=== PATIENT | female | born 1990 | race Caucasian/White ===

== ENCOUNTER 2016-11-15 16:13 | Emergency (ER) | payer OTHER ==
[2016-11-15 16:28] VITALS: PULSE 65
--- NOTE | 2016-11-15 16:57 | CPEKG ---
Heart Rate: 51 RR Interval: 1176 P-R Interval: 136 QRSD Interval: 78 QT Interval: 436 QTC Interval: 402 P Aurora: 31 QRS Aurora: 35 T Wave Aurora: 54 EKG Severity - BORDERLINE ECG - EKG Impression: SINUS RHYTHM EKG Impression: LOW VOLTAGE THROUGHOUT Electronically Signed By: Katherine Skelton 15-Nov-2016 21:59:01
--- NOTE | 2016-11-15 17:08 | EDPHY ---
H & P Time Seen by Provider: 11/15/16 17:07 HPI/ROS: Chief complaint. Chest tightness HPI. 26-year-old female had an endoscopy 2 days ago. There were some biopsies. Indication for biopsy was celiac disease. Now her throat feels tight. She has had hot and cold and dizzy spells and shaking spells. No fever. She is drinking fluids and swallowing secretions. She feels her chest is tight with some shortness of breath and wheeziness. She also has epigastric abdominal pain. She does have a history of asthma ROS Constitutional. Hot and cold Eyes. no problems with vision ENT. Throat swelling Cardiovascular. Chest tightness Respiratory. Slight shortness of breath Abdominal. Upper abdominal pain . no problems urinating MS. no calf pain/swelling, no neck/back pain, no joint pain Skin. no rash Lymph. no swollen glands Neuro. no headache, no dizziness, no difficulty walking or with speech Past Medical/Surgical History: Past medical history significant lupus, IgA deficiency, sinus surgeries, pyelonephritis, fibromyalgia Social History: , nonsmoker, no alcohol Smoking Status: Never smoked Constitutional: Initial Vital Signs Temperature (C) 37 C 11/15/16 16:25 Heart Rate 65 11/15/16 16:25 Respiratory Rate 20 11/15/16 16:25 Blood Pressure 147/97 H 11/15/16 16:25 O2 Sat (%) 97 11/15/16 16:25 O2 Delivery Mode Room Air Allergies/Adverse Reactions: NSAIDS (Non-Steroidal Anti-Inflamma Allergy (Severe, Verified 11/15/16 16:24) Anaphylaxis Home Medications: Medication Instructions Recorded Ventolin 1 puffs IA PRN PRN 07/10/13 Albuterol [Ventolin Hfa Inhaler] 2 puffs IH Q4 #1 mdi 11/15/16 Dexamethasone [Decadron 4 MG (*)] 4 mg PO DAILY #3 tab 11/15/16 Medical Decision Making - Diagnostics Imaging: X-ray chest in neck are normal Procedures: Georgina segura ED Course/Re-evaluation: Re-evaluation 6:20 p.m. Differential Diagnosis: I considered airway compromise, epiglottitis, pneumonia, perforation, pancreatitis. I suspect the patient is having some throat irritation and sense of swelling from having a endoscopy. However there is no airway compromise. Patient is speaking in full sentences. There is no stridor. She is handling her secretions - Data Points Laboratory Results: Laboratory Results 11/15/16 17:30 11/15/16 17:30 11/15/16 11/15/16 11/15/16 17:30 17:30 17:30 WBC 5.81 10^3/uL 10^3/uL (3.80-9.50) RBC 4.74 10^6/uL 10^6/uL (4.18-5.33) Hgb 10.8 g/dL L g/dL (12.6-16.3) Hct 36.0 % L % (38.0-47.0) MCV 75.9 fL L fL (81.5-99.8) MCH 22.8 pg L pg (27.9-34.1) MCHC 30.0 g/dL L g/dL (32.4-36.7) RDW 16.6 % H % (11.5-15.2) Plt Count 301 10^3/uL 10^3/uL (150-400) MPV 11.3 fL fL (8.7-11.7) Neut % (Auto) 54.7 % % (39.3-74.2) Lymph % (Auto) 30.8 % % (15.0-45.0) [place] % (Auto) 8.6 % % (4.5-13.0) Eos % (Auto) 4.6 % % (0.6-7.6) Baso % (Auto) 1.0 % % (0.3-1.7) Nucleat RBC Rel Count 0.0 % % (0.0-0.2) Absolute Neuts (auto) 3.17 10^3/uL 10^3/uL (1.70-6.50) Absolute Lymphs (auto) 1.79 10^3/uL 10^3/uL (1.00-3.00) Absolute Monos (auto) 0.50 10^3/uL 10^3/uL (0.30-0.80) Absolute Eos (auto) 0.27 10^3/uL 10^3/uL (0.03-0.40) Absolute Basos (auto) 0.06 10^3/uL 10^3/uL (0.02-0.10) Absolute Nucleated RBC 0.00 10^3/uL 10^3/uL (0-0.01) Immature Gran % 0.3 % % (0.0-1.1) Immature Gran # 0.02 10^3/uL 10^3/uL (0.00-0.10) D-Dimer < 0.27 ug/mLFEU ug/mLFEU (0.00-0.50) Sodium 142 mEq/L mEq/L (134-144) Potassium 4.1 mEq/L mEq/L (3.5-5.2) Chloride 109 mEq/L mEq/L (97-110) Carbon Dioxide 21 mEq/l L mEq/l (22-31) Anion Gap 12 mEq/L mEq/L (8-16) BUN 9 mg/dL mg/dL (7-23) Creatinine 0.6 mg/dL mg/dL (0.6-1.0) Estimated GFR > 60 Glucose 92 mg/dL mg/dL (70-100) Calcium 9.6 mg/dL mg/dL (8.5-10.4) Lipase 243.0 IU/L IU/L (23-300) Medications Given: Discontinued Medications Albuterol/Ipratropium (Duoneb) 3 ml IH EDNOW ONE Stop: 11/15/16 17:19 Last Admin: 11/15/16 17:39 Dose: 3 ml Dexamethasone (Decadron) 10 mg PO EDNOW ONE Stop: 11/15/16 17:20 Last Admin: 11/15/16 17:39 Dose: 10 mg Departure - Departure Disposition: Home, Routine, Self-Care Clinical Impression: Dyspnea Qualifiers: Dyspnea type: shortness of breath Qualified Code(s): R06.02 - Shortness of breath Condition: Good Instructions: Dyspnea (ED) Additional Instructions: Drink plenty of fluids and stay hydrated. Ventolin inhaler as needed for breathing. Decadron next 3 days for throat swelling. Return for worsening symptoms. Recheck in 2 days if not improving Referrals: Delonte Jarrell MD [Primary Care Provider] - 2-3 days, if not improved Prescriptions: Albuterol [Ventolin Hfa Inhaler] 2 puffs IH Q4 #1 mdi Dexamethasone [Decadron 4 MG (*)] 4 mg PO DAILY #3 tab
[2016-11-15] MEDS ORDERED: IPRATROPIUM/ALBUTEROL 3 ML DEYVIAL IH ONE (17:18)
[2016-11-15] MEDS ORDERED: DEXAMETHASONE 4 MG TAB PO ONE (17:19)
[2016-11-15 17:59] LABS: % IMMATURE GRANULYOCYTES 0.3 % (0.0-1.1); ABSOLUTE IMMATURE GRANULOCYTES 0.02 10^3/uL (0.00-0.10); ADD DIFF? NO; ADD MORPH? NO; ADD SCAN? NO; ATYPICAL LYMPHOCYTE FLAG 20 (0-99); FRAGMENT RBC FLAG 20 (0-99); HEMOGLOBIN 10.8 g/dL (12.6-16.3); LEFT SHIFT FLG 0 (0-99); LIPEMIA HEMOLYSIS FLAG 80 (0-99); MEAN CELL HEMOGLOBIN 22.8 pg (27.9-34.1); MEAN CELL VOLUME 75.9 fL (81.5-99.8); MEAN PLATELET VOLUME 11.3 fL (8.7-11.7); PLATELET CLUMPS FLAG 0 (0-99); PLATELET COUNT 301 10^3/uL (150-400); RED BLOOD CELL COUNT 4.74 10^6/uL (4.18-5.33); RED CELL DISTRIBUTION WIDTH 16.6 % (11.5-15.2)
[2016-11-15 18:01] LABS: ANION GAP 12 mEq/L (8-16); CALCIUM 9.6 mg/dL (8.5-10.4); CARBON DIOXIDE 21 mEq/l (22-31); CHLORIDE 109 mEq/L (97-110); CREATININE 0.6 mg/dL (0.6-1.0); GLOMERULAR FILTRATION RATE > 60; GLUCOSE 92 mg/dL (70-100); POTASSIUM 4.1 mEq/L (3.5-5.2); SODIUM 142 mEq/L (134-144)
[2016-11-15 20:09] VITALS: BP 120/76; RESP 16; TEMP 97.9; O2SAT 99
== END 2016-11-15 19:00 | disposition home or self-care (01) ==
DX: R06.02 Shortness of breath (principal)

== ENCOUNTER → 2017-07-19 | Outpatient (CLI) | payer OTHER | LOC: FIMAGING 09:26 | PROVIDERS: ATTEND Advanced Practice Midwife | DX: O34.219 Maternal care for unspecified type scar from previous cesarean delivery (principal); O26.611 Liver and biliary tract disorders in pregnancy, first trimester; K90.0 Celiac disease; Z87.59 Personal history of other complications of pregnancy, childbirth and the puerperium; Z3A.12 12 weeks gestation of pregnancy ==

== ENCOUNTER → 2017-08-23 | Outpatient (CLI) | payer OTHER | LOC: FIMAGING 11:36 | PROVIDERS: ATTEND Advanced Practice Midwife | DX: O09.92 Supervision of high risk pregnancy, unspecified, second trimester (principal); Z3A.17 17 weeks gestation of pregnancy; Z87.59 Personal history of other complications of pregnancy, childbirth and the puerperium ==

== ENCOUNTER → 2017-10-29 | Outpatient (CLI) | payer OTHER | LOC: FIMAGING 12:53 | PROVIDERS: ATTEND Advanced Practice Midwife | DX: R80.9 Proteinuria, unspecified (principal) ==

== ENCOUNTER 2017-10-31 17:48 | Observation (INO) | payer OTHER ==
[2017-10-31 18:56] LABS: PLATELET COUNT 219 10^3/uL (150-400)
[2017-10-31] MEDS ORDERED: BETAMETHASONE IM SYRINGE IM ONE (21:04)
[2017-10-31] MEDS ORDERED: HYDROCODONE/APAP 5/325 TAB PO PRN (21:04)
[2017-10-31] MEDS: ACETAMINOPHEN 500 MG TAB PO PRN (21:25)
--- NOTE | 2017-10-31 22:02 | GHP ---
[f rep st] HISTORY AND PHYSICAL DATE OF ADMISSION: 10/31/2017 ADMITTING DIAGNOSES: 1. Intrauterine at 27 weeks and 5 days. 2. New onset headaches, visual changes, right upper quadrant pain. 3. History of preeclampsia. HISTORY OF PRESENT ILLNESS: Patient is a 27-year-old 2, para 0-1-0-1 at 27 weeks and 5 days with an estimated due date is 01/25/2018, by first trimester ultrasound at 7 weeks. Patient called the office today with complaints of a headache all day that did not resolve after Tylenol, as well as visual changes, described as seeing flashes. She is also complaining of sharp, stabbing pain under right rib cage. The patient states blood pressures are usually 100s over 60s. She has been taking home blood pressures for the last month, since seeing [facility], and at home today was 134 over 86. The patient denies any nausea or vomiting. The patient denies any swelling. The patient does state good movement. Denies any contractions or cramping, leakage of fluid or vaginal bleeding. The patient was told to come into Labor and Delivery for evaluation. Ultrasound done with [facility] about a month ago showed normal growth, estimated weight 54th percentile. She was scheduled for a followup growth ultrasound this November 05. The patient has good care at [facility] and presented in her first trimester. is complicated by a previous history of IUGR and preeclampsia with an emergent at 34 weeks. The patient has Celiac disease and being worked up for another autoimmune disorder. The patient did have a level 2 scan with MFM and anatomy was normal. She did have a baseline 24-hour urine protein of 660 mg. PAST OBSTETRICAL HISTORY: In 2014, the patient delivered a viable female infant at 34 weeks by emergency secondary to IUGR and preeclampsia, baby girl was breech. GYNECOLOGICAL HISTORY: Age of menarche was 14 or 15. Cycles are every 25-30 days for 3-4 days. The patient denies any history of abnormal Pap smears or any STDs. MEDICATIONS: Include vitamins, iron, Singulair, Symbicort, and Ventolin inhaler as needed. ALLERGIES: NSAIDs with anaphylaxis. PAST MEDICAL HISTORY: Asthma, ? autoimmune disease, celiac, and migraine headaches. PAST SURGICAL HISTORY: section, sinus surgery, tonsillectomy, and left hand surgery. FAMILY HISTORY: Noncontributory. SOCIAL HISTORY: Patient is . Lives with and their child. She denies any alcohol, tobacco or illicit drug use. LABORATORY DATA: A-positive, antibody negative. Rubella immune. RPR nonreactive. Hepatitis B surface antigen negative. HIV negative. Trio screen negative in 07/2014. Urine culture negative. Innatal screen negative. REVIEW OF SYSTEMS: Ten-point review of systems is negative. Pertinent positives noted in HPI. LABORATORY DATA: Hemoglobin and hematocrit 13.1 and 38.9. Platelets are 219. Uric acid 4.4, AST 18, ALT 28, LDH 380. P to C ratio is 0.56. A 24-hour urine 09/30 was 488 mg. The patient is in the process of collecting a 24-hour urine here on Labor and Delivery. PHYSICAL EXAMINATION: VITAL SIGNS: On admission, vital signs stable. Patient is afebrile. Blood pressure range: 116 to 126 over 65 to 77. GENERAL: She is a well-nourished, well-developed female. She is alert and oriented times x3 in no apparent distress. CARDIOVASCULAR: Regular rate and rhythm. LUNGS: Clear to auscultation bilaterally. ABDOMEN: She does have right upper quadrant tenderness. Gravid abdomen, nontender and nondistended. PELVIC: Deferred. EXTREMITIES: Normal to inspection without calf tenderness or edema. There are +1 DTRs and 2-3 beats clonus noted. heart tones are Category I tracing with baseline 140 bpm, no decels, mod variability; reassuring for gestation age. On toco, there are no contractions. ASSESSMENT: Patient is a 27-year-old 2, para 0-1-0-1 at 27 and 5 weeks with new onset headaches, visual changes, right upper quadrant pain and elevated BP with a history of preeclampsia. PLAN: 1. Admit to Labor and Delivery for observation. 2. Blood pressures are stable, will cont to closely monitor. 3. PIH labs were drawn and normal. 4. Will start 24-hour urine, in progress now. 5. First dose of steroids given, will repeat in 24 hours. 6. Plan for consultation with M in a.m., as well as a growth ultrasound. /[id number]/MODL MTDD
[2017-11-01] MEDS: ACETAMINOPHEN 500 MG TAB PO PRN (05:58)
--- NOTE | 2017-11-01 08:25 | OBPROG ---
Labor Progress Note Assessment/Plan: Assessment: 27 y/o @ 27 6/7 weeks with PARRA, visual symptoms and h/o pre-eclampsia with G1 Plan: MFM ultrasound today demonstrated EFW of 19% today, labs are stable and BP are normal. We will treat her PARRA with Reglan and normal diet this am and if she feels better, will d/c home for her to return tonight @ 22:00 for NST, BP check and repeat BMZ. Will follow in the office for weekly visits, labs as indicated for elevated BP or symptoms and ultrasound with [facility] Q 3-4 weeks. 11/01/17 08:57 Subjective/Intrapartum Course: 11/01/17 08:49 Pt is feeling better this am. She still has a low grade PARRA today. Visual changes have resolved and RUQ pain feels musculoskeletal today. She denies contractions or cramping and has good FM. She is going to see [facility] today for an ultrasound. Objective: 10/31/17 18:30 10/31/17 18:30 Uric Acid 4.4 mg/dL (2.5-6.8) 10/31/17 18:30 Total Bilirubin 0.2 mg/dL (0.1-1.4) 10/31/17 18:30 Conjugated Bilirubin 0.1 mg/dL (0.0-0.5) 10/31/17 18:30 Unconjugated Bilirubin 0.1 mg/dL (0.0-1.1) 10/31/17 18:30 AST 18 IU/L (14-46) 10/31/17 18:30 ALT 28 IU/L (9-52) 10/31/17 18:30 Lactate Dehydrogenase 380 IU/L (313-618) 10/31/17 18:30 BP 124/75, 106/52, 121/65, 126/77, 119/73, 116/65 - Contraction Pattern Assessment Current Contraction Pattern: Regular, Irregular (none) - FHR Assessment Rapp FHR (bpm): 130 FHR Pattern Variability: Moderate FHR Category: 1 (AGA) - AP Antepartum Course: 11/01/17 08:55 H/o pre-eclampsia and c section for breech @ 34 weeks with G1 - Physical Exam General Appearance: WD/WN, alert, no apparent distress Estimated Weight: Less than 2500g Neck: non-tender, full range of motion, supple Respiratory: chest non-tender, lungs clear, normal breath sounds Cardiac/Chest: regular rate, rhythm Abdomen: normal bowel sounds, other (NT, neg Gordon's) Extremities: swelling (no) DTR- Lower Extremities: Knee (R): 3+, Knee (L): 3+ Oxytocin Orders Assessment - Pre-Induction/Augmentation Assessment Gestational Age: 27 week(s) and 5 day(s) ICD10 Worksheet Patient Problems: Problems Problem Status Onset Headache Acute delivery due to maternal disorder, delivered, curr hospitaliz Acute Pre-eclampsia Acute - ICD10 Problem Qualifiers (1) Headache
[2017-11-01] MEDS ORDERED: METOCLOPRAMIDE 10 MG/2 ML VIAL IVP PRN (11:06)
--- NOTE | 2017-11-01 13:19 | OBPROG ---
Labor Progress Note Assessment/Plan: Assessment: Plan: Subjective/Intrapartum Course: 11/01/17 08:49 Pt is feeling better this am. She still has a low grade PARRA today. Visual changes have resolved and RUQ pain feels musculoskeletal today. She denies contractions or cramping and has good FM. She is going to see M today for an ultrasound. Objective: 10/31/17 18:30 10/31/17 18:30 Uric Acid 4.4 mg/dL (2.5-6.8) 10/31/17 18:30 Total Bilirubin 0.2 mg/dL (0.1-1.4) 10/31/17 18:30 Conjugated Bilirubin 0.1 mg/dL (0.0-0.5) 10/31/17 18:30 Unconjugated Bilirubin 0.1 mg/dL (0.0-1.1) 10/31/17 18:30 AST 18 IU/L (14-46) 10/31/17 18:30 ALT 28 IU/L (9-52) 10/31/17 18:30 Lactate Dehydrogenase 380 IU/L (313-618) 10/31/17 18:30 - Contraction Pattern Assessment Current Contraction Pattern: Regular, Irregular (none) - AP Antepartum Course: 11/01/17 08:55 H/o pre-eclampsia and c section for breech @ 34 weeks with G1 - Physical Exam Estimated Weight: Less than 2500g Oxytocin Orders Assessment - Pre-Induction/Augmentation Assessment Gestational Age: 27 week(s) and 5 day(s) Estimated Weight: Less than 2500g ICD10 Worksheet Patient Problems: Problems Problem Status Onset Headache Acute delivery due to maternal disorder, delivered, curr hospitaliz Acute Pre-eclampsia Acute
--- NOTE | 2017-11-01 13:38 | OBPROG ---
Labor Progress Note Assessment/Plan: Assessment: 27 y/o @ 27 6/7 weeks with PARRA, visual symptoms and h/o pre-eclampsia with G1 Plan: MFM ultrasound today demonstrated EFW of 19% today, labs are stable and BP are normal. We will treat her PARRA with Reglan and normal diet this am and if she feels better, will d/c home for her to return tonight @ 22:00 for NST, BP check and repeat BMZ. Will follow in the office for weekly visits, labs as indicated for elevated BP or symptoms and ultrasound with [facility] Q 3-4 weeks. Rx Reglan prn PARRA. 11/01/17 08:57 11/01/17 13:38 Subjective/Intrapartum Course: 11/01/17 08:49 Pt is feeling better this am. She still has a low grade PARRA today. Visual changes have resolved and RUQ pain feels musculoskeletal today. She denies contractions or cramping and has good FM. She is going to see MFM today for an ultrasound. 11/01/17 13:35 Pt is feeling much better now. She received IV Reglan and took a nap and now feels better. She still has a low grade PARRA, but it os much better. She denies visual changes has good FM and no contractions. Objective: 10/31/17 18:30 10/31/17 18:30 Uric Acid 4.4 mg/dL (2.5-6.8) 10/31/17 18:30 Total Bilirubin 0.2 mg/dL (0.1-1.4) 10/31/17 18:30 Conjugated Bilirubin 0.1 mg/dL (0.0-0.5) 10/31/17 18:30 Unconjugated Bilirubin 0.1 mg/dL (0.0-1.1) 10/31/17 18:30 AST 18 IU/L (14-46) 10/31/17 18:30 ALT 28 IU/L (9-52) 10/31/17 18:30 Lactate Dehydrogenase 380 IU/L (313-618) 10/31/17 18:30 - Contraction Pattern Assessment Current Contraction Pattern: Regular, Irregular (none) - FHR Assessment Rapp FHR (bpm): 130 FHR Pattern Variability: Moderate FHR Category: 1 (AGA) - AP Antepartum Course: 11/01/17 08:55 H/o pre-eclampsia and c section for breech @ 34 weeks with G1 - Physical Exam Estimated Weight: Less than 2500g Oxytocin Orders Assessment - Pre-Induction/Augmentation Assessment Gestational Age: 27 week(s) and 5 day(s) Estimated Weight: Less than 2500g ICD10 Worksheet Patient Problems: Problems Problem Status Onset Headache Acute delivery due to maternal disorder, delivered, curr hospitaliz Acute Pre-eclampsia Acute - ICD10 Problem Qualifiers (1) Headache
[2017-11-01] MEDS ORDERED: METOCLOPRAMIDE 10 MG TAB PO SCH (16:00)
[2017-11-01] MEDS ORDERED: BETAMETHASONE IM SYRINGE IM ONE (21:15)
== END 2017-11-01 14:30 | disposition home or self-care (01) ==
LOC: FLD 17:48
PROVIDERS: ADMIT Obstetrics & Gynecology; ATTEND Obstetrics & Gynecology
DX: R51 Headache (principal); O09.892 Supervision of other high risk pregnancies, second trimester; O99.612 Diseases of the digestive system complicating pregnancy, second trimester; K90.0 Celiac disease; Z3A.27 27 weeks gestation of pregnancy
CPT/HCPCS: 59025; 76816; 96372; G0378; J0702; J2765

== ENCOUNTER 2017-11-01 21:13 | Observation (INO) | payer OTHER ==
[2017-11-01] MEDS ORDERED: BETAMETHASONE IM SYRINGE IM ONE (21:20)
--- NOTE | 2017-11-20 04:28 | GPROG ---
[f rep st] PROGRESS NOTE DISCHARGE ORDER Patient was admitted on the 6th for observation, rule out preeclampsia, and she did well and was disc harged home. /[id number]/MODL
== END 2017-11-01 21:55 | disposition home or self-care (01) ==
LOC: FLD 21:13
PROVIDERS: ADMIT Obstetrics & Gynecology; ATTEND Obstetrics & Gynecology
DX: O26.892 Other specified pregnancy related conditions, second trimester (principal); R51 Headache; Z3A.27 27 weeks gestation of pregnancy

== ENCOUNTER 2017-11-08 15:19 | Observation (INO) | payer OTHER ==
--- NOTE | 2017-11-08 16:02 | SOAPPROG ---
SOAP Progress Note Assessment/Plan: Assessment: Plan: Objective: Laboratory Results 11/08/17 15:45 ICD10 Worksheet Patient Problems: Problems Problem Status Onset delivery due to maternal disorder, delivered, curr hospitaliz Acute Headache Acute Pre-eclampsia Acute
--- NOTE | 2017-11-09 05:54 | PDGENHP ---
History and Physical - Chief Complaint PARRA, RUQ pain, mild range BP - History of Present Illness I saw Yasmeen in the office today at 28w6d - she was added on as she called in reporting acute worsening of her PARRA, upper R abdominal pain, nausea, continued visual changes - as well as decreased movement. She had taken her BP on her home cuff during this time when these sx worsened and got multiple readings that were as high at 150s/90s. Had her present to triage for labs and evaluation. See prior notes - but was here just last week for IP PIH eval due to all these same sx and she did not meet criteria for Preeclampsia at that time and was discharged home w plan for close OP follow-up. History Information - Allergies/Home Medication List Allergies/Adverse Reactions: NSAIDS (Non-Steroidal Anti-Inflamma Allergy (Severe, Verified 11/15/16 16:24) Anaphylaxis Home Medications: Ventolin 1 puffs IA PRN PRN 07/10/13 [Last Taken 10/31/17 09:00] Folic Acid 1 PO DAILY 10/31/17 [Last Taken 11/01/17 14:00] Dha 1 tab PO DAILY 10/31/17 [Last Taken 11/01/17 14:00] Symbicort 160-4.5 Mcg Inh (*) 2 inh DAILY 11/01/17 [Last Taken Unknown] I have personally reviewed and updated: family history, medical history, social history, surgical history - Past Medical History no pertinent PMH (Crohns disease, known positive SCOTTY, H/o severe Preeclampsia w / G1 at 34 wks requiring PLTCS) - Surgical History Additional surgical history: - Family History Positive for: non-pertinent - Social History Smoking Status: Never smoked Review of Systems Review of Systems: ROS: 10pt was reviewed & negative except for what was stated in HPI & below Physical Exam Physical Exam: BPs in [place] - as high as 149/89 in the first hour of monitoring. Never severe range. Constitutional: no apparent distress, uncomfortable Cardiovascular: regular rate and rhythym Respiratory: no respiratory distress Neurologic: AAOx3, CN II-XII Intact Psychiatric: interacting appropriately Lab Data & Imaging Review 11/08/17 15:45 11/08/17 15:45 Laboratory Tests 11/12/14 10/31/17 11/08/17 11:00 23:03 15:45 Hgb 13.1 Hct 38.7 Plt Count 235 Creatinine Gestat Glucose Screen 80 Uric Acid AST ALT Alkaline Phosphatase Lactate Dehydrogenase Ur Total Protein 24 Hr 239 H 11/08/17 15:45 Hgb Hct Plt Count Creatinine 0.4 L Gestat Glucose Screen Uric Acid 4.5 AST 27 ALT 37 Alkaline Phosphatase 116 Lactate Dehydrogenase 367 Ur Total Protein 24 Hr WBC 13.57 10^3/uL (3.80-9.50) H 11/08/17 15:45 RBC 4.20 10^6/uL (4.18-5.33) 11/08/17 15:45 Hgb 13.1 g/dL (12.6-16.3) 11/08/17 15:45 Hct 38.7 % (38.0-47.0) 11/08/17 15:45 MCV 92.1 fL (81.5-99.8) 11/08/17 15:45 MCH 31.2 pg (27.9-34.1) 11/08/17 15:45 MCHC 33.9 g/dL (32.4-36.7) 11/08/17 15:45 RDW 13.2 % (11.5-15.2) 11/08/17 15:45 Plt Count 235 10^3/uL (150-400) 11/08/17 15:45 Sodium 138 mEq/L (135-145) 11/08/17 15:45 Potassium 4.0 mEq/L (3.5-5.2) 11/08/17 15:45 Chloride 106 mEq/L (97-110) 11/08/17 15:45 Carbon Dioxide 21 mEq/l (22-31) L 11/08/17 15:45 Anion Gap 11 mEq/L (8-16) 11/08/17 15:45 BUN 7 mg/dL (7-23) 11/08/17 15:45 Creatinine 0.4 mg/dL (0.6-1.0) L 11/08/17 15:45 Estimated GFR > 60 11/08/17 15:45 Glucose 79 mg/dL (70-100) 11/08/17 15:45 Uric Acid 4.5 mg/dL (2.5-6.8) 11/08/17 15:45 Calcium 9.4 mg/dL (8.5-10.4) 11/08/17 15:45 Total Bilirubin 0.4 mg/dL (0.1-1.4) 11/08/17 15:45 AST 27 IU/L (14-46) 11/08/17 15:45 ALT 37 IU/L (9-52) 11/08/17 15:45 Alkaline Phosphatase 116 IU/L (38-126) 11/08/17 15:45 Lactate Dehydrogenase 367 IU/L (313-618) 11/08/17 15:45 Total Protein 6.7 g/dL (6.3-8.2) 11/08/17 15:45 Albumin 3.7 g/dL (3.5-5.0) 11/08/17 15:45 Ur Random Creatinine 24.1 mg/dL 11/08/17 17:00 U Random Total Protein 8 mg/dL (0-11) 11/08/17 17:00 Imaging Review: Most recent growth US was completed during her last IP stay and growth had dropped off to 19% EFW. Plan is to repeat that monthly going forward. That 19 % was a decrease from ~50% on earlier 20 wk scan Assessment & Plan Assessment: 27 yo at 28w6d with PARRA, significant RUQ pain, and mild BP elevation. Currently she is meeting criteria for the diagnosis of GHTN at least with her mild range BP's. Admitted for serial BP monitoring, repeat 24 hr urine protein , and determination if preeclampsia also evolving. Plan: Serial BP measurement. Admit for Obs overnight. Start 24 hr urine. Completed course of BMZ with her IP admission, no indication to do rescue course at this time. Labs overall normal on admission as above, but PCR 0.3. TID monitoring if initial strip looks good. Will discuss plan with M tomorrow.
--- NOTE | 2017-11-09 09:57 | OBPROG ---
Labor Progress Note Assessment/Plan: Assessment: 27 y/o @ 29 weeks with s/sx's pre-eclampsia but normal labs and status reassuring. Plan: Consultation with MFM today for plan. 11/09/17 10:02 Subjective/Intrapartum Course: 11/09/17 09:53 Pt continues to struggle this am. She has a constant dull PARRA, frontal in location waxing and waning in intensity. She has epigastric pain and nausea also waxing and waning but persistent. She has episodes of scotomata, which she describes as "flashing strobe lights" in her frontal and peripheral vision. These also come and go. She feels good FM and denies cramping or contractions. She is eating today without vomiting. She would like to d/c home , but is concerned about how to monitor and when to come back. Objective: 11/08/17 15:45 11/08/17 15:45 Uric Acid 4.5 mg/dL (2.5-6.8) 11/08/17 15:45 Total Bilirubin 0.4 mg/dL (0.1-1.4) 11/08/17 15:45 AST 27 IU/L (14-46) 11/08/17 15:45 ALT 37 IU/L (9-52) 11/08/17 15:45 Lactate Dehydrogenase 367 IU/L (313-618) 11/08/17 15:45 - Contraction Pattern Assessment Current Contraction Pattern: Other (Specify) (none) - FHR Assessment Rapp FHR (bpm): 140 FHR Pattern Variability: Moderate FHR Category: 1 (AGA) - AP Antepartum Course: 11/09/17 09:57 H/o PTD @ 34 weeks, c section secondary to breech and severe pre-eclampsia - Physical Exam General Appearance: no apparent distress Neck: non-tender, full range of motion, supple Respiratory: chest non-tender, lungs clear, normal breath sounds Cardiac/Chest: regular rate, rhythm Abdomen: normal bowel sounds, other (gravid, NT + epigastric pain) Extremities: swelling (no) DTR- Lower Extremities: Knee (R): 3+, Knee (L): 3+ (2 beats clonus) Oxytocin Orders Assessment - Pre-Induction/Augmentation Assessment Gestational Age: 28 week(s) and 6 day(s) ICD10 Worksheet Patient Problems: Problems Problem Status Onset delivery due to maternal disorder, delivered, curr hospitaliz Acute Headache Acute Pre-eclampsia Acute
[2017-11-09] MEDS ORDERED: HYDROCODONE/APAP 5/325 TAB PO PRN (10:20)
[2017-11-09] MEDS ORDERED: METOCLOPRAMIDE 10 MG/2 ML VIAL IVP SCH (12:00)
[2017-11-09 12:15] LABS: PLATELET COUNT 231 10^3/uL (150-400)
[2017-11-09] MEDS ORDERED: CALCIUM GLUC 10% 1 GM/10 ML VIAL IVP PRN (13:51)
--- NOTE | 2017-11-09 13:57 | OBPROG ---
Labor Progress Note Assessment/Plan: Assessment: 27 y/o @ 29 weeks with s/sx's pre-eclampsia worsening. Plan: After a thorough discussion with Dr. Khanh Keen the patient and her family. We are deciding to transfer her to [facility] for evaluation and likely delivery. Will start MgSo4 for seizure protection for the transport. 11/09/17 10:02 11/09/17 13:57 Subjective/Intrapartum Course: 11/09/17 09:53 Pt continues to struggle this am. She has a constant dull PARRA, frontal in location waxing and waning in intensity. She has epigastric pain and nausea also waxing and waning but persistent. She has episodes of scotomata, which she describes as "flashing strobe lights" in her frontal and peripheral vision. These also come and go. She feels good FM and denies cramping or contractions. She is eating today without vomiting. She would like to d/c home , but is concerned about how to monitor and when to come back. 11/09/17 13:54 Pt is feeling worse this afternoon. She continues to have severe PARRA not improved with Amigo or Reglan IV. She is having worse scotomata and feels that she is not able to see clearly. Her epigastric pain and nausea continues and she had a normal abdominal ultrasound. Objective: 11/09/17 12:00 11/09/17 12:00 Uric Acid 4.3 mg/dL (2.5-6.8) 11/09/17 12:00 Total Bilirubin 0.5 mg/dL (0.1-1.4) 11/09/17 12:00 Conjugated Bilirubin 0.1 mg/dL (0.0-0.5) 11/09/17 12:00 Unconjugated Bilirubin 0.4 mg/dL (0.0-1.1) 11/09/17 12:00 AST 23 IU/L (14-46) 11/09/17 12:00 ALT 34 IU/L (9-52) 11/09/17 12:00 Lactate Dehydrogenase 388 IU/L (313-618) 11/09/17 12:00 - Contraction Pattern Assessment Current Contraction Pattern: Other (Specify) (none) - AP Antepartum Course: 11/09/17 09:57 H/o PTD @ 34 weeks, c section secondary to breech and severe pre-eclampsia - Physical Exam General Appearance: WD/WN, alert, no apparent distress Neck: non-tender, full range of motion, supple Respiratory: chest non-tender, lungs clear, normal breath sounds Cardiac/Chest: regular rate, rhythm Abdomen: normal bowel sounds, other (+ Gordon's ) Extremities: swelling (no), Luis's sign (neg) DTR- Lower Extremities: Knee (R): 3+, Knee (L): 3+ Oxytocin Orders Assessment - Pre-Induction/Augmentation Assessment Gestational Age: 28 week(s) and 6 day(s) ICD10 Worksheet Patient Problems: Problems Problem Status Onset delivery due to maternal disorder, delivered, curr hospitaliz Acute Headache Acute Pre-eclampsia Acute
[2017-11-09] MEDS ORDERED: MAGNESIUM SULF 2 GM/WATER 50 ML IV ONE (14:00)
[2017-11-09] MEDS ORDERED: Mag Sulf 500 ML IV SCH (14:00)
[2017-11-09] MEDS ORDERED: MAGNESIUM SULFATE 20 GM in D5W 500 ML IV SCH (14:14)
== END 2017-11-09 18:00 | disposition short-term general hospital (02) ==
LOC: INTOOBSV 15:19 → FLD 15:19
PROVIDERS: ADMIT Advanced Practice Midwife; ATTEND Advanced Practice Midwife
DX: O13.3 Gestational [pregnancy-induced] hypertension without significant proteinuria, third trimester (principal); Z3A.28 28 weeks gestation of pregnancy
CPT/HCPCS: 59025; 76700; G0378; J2765; J3475

== ENCOUNTER → 2018-04-24 | Outpatient (CLI) | payer OTHER ==
[~2018-04-24] MED LIST: GADOBUTROL 10 ML VIAL IVP ONE
== END ==
LOC: FIMAGING 12:33
PROVIDERS: ATTEND Physician Assistant Medical
DX: R94.02 Abnormal brain scan (principal); H53.9 Unspecified visual disturbance; M79.609 Pain in unspecified limb; R53.1 Weakness
CPT/HCPCS: A9585